=== PATIENT | male | born 1995 | race Caucasian/White ===

== ENCOUNTER 2021-06-15 14:58 | Emergency (ER) | payer OTHER ==
[2021-06-15 16:37] VITALS: BP 137/89; PULSE 104; RESP 20; TEMP 101
[2021-06-15] MEDS ORDERED: ACETAMINOPHEN TAB 500 MG TAB PO STA (17:13)
[2021-06-15] MEDS ORDERED: IBUPROFEN 600 MG TAB PO STA (17:13)
[2021-06-15] MEDS ORDERED: BAMLANIVIMAB (EUA) 700 MG, ETESEVIMAB (EUA) 1,400 MG in SODIUM CHLORIDE 0.9% 50 ML IVPB ONE (17:45)
--- NOTE | 2021-06-15 17:48 | XR ---
EXAMINATION TYPE: XR chest 1V portable DATE OF EXAM: 06/15/2021 COMPARISON: NONE HISTORY: 26 years Male. STUDY INDICATION GIVEN: cough/fever, possible covid . TECHNIQUE: PA chest radiograph IMPRESSION: Scattered patchy opacities are seen in the left lower lung and right upper lung. There are prominent interstitial markings diffusely throughout the lung. Findings concerning for multifocal pneumonia. The heart is not enlarged. No pneumothorax or pleural effusion appreciated. Osseous structures are unremarkable.
--- NOTE | 2021-06-15 18:06 | ED ---
URI HPI - General Chief Complaint: Upper Respiratory Infection Stated Complaint: Cough, runny nose, fever Time Seen by Provider: 06/15/21 16:59 Source: patient, family, RN notes reviewed, Caregiver Mode of arrival: ambulatory Limitations: no limitations - History of Present Illness Initial Comments: Patient is a 26-year-old male with history of autism, ADHD, presenting to the emergency department with his mother with concerns of Covid. Mother recently tested positive as well as additional family members. Patient started having cough, body aches, fevers over the past few days. He has some mild shortness of breath and a mild sore throat as well. He denies history of asthma or COPD comes a nonsmoker. There is been no recent Tylenol and Motrin. Patient has no chest pain, no abdominal pain, no nausea or vomiting. There are no further complaints at this time. Mother does have albuterol nebulizer at home, they have been doing breathing treatments. Upon arrival to the ER, temperature 100.1 degrees, pulse is 104, 100% on room air. - Related Data Previous Rx's Medication Instructions Recorded Dexamethasone [Decadron] 6 mg PO DAILY 5 Days #5 tablet 06/15/21 Allergies Allergy/AdvReac Type Severity Reaction Status Date / Time No Known Allergies Allergy Verified 06/15/21 16:32 Review of Systems ROS Statement: Those systems with pertinent positive or pertinent negative responses have been documented in the HPI. ROS Other: All systems not noted in ROS Statement are negative. Past Medical History Additional Past Medical History / Comment(s): Autism, ADHD History of Any Multi-Drug Resistant Organisms: None Reported Past Surgical History: No Surgical Hx Reported Past Psychological History: No Psychological Hx Reported Smoking Status: Never smoker Past Alcohol Use History: None Reported Past Drug Use History: None Reported General Exam - General Exam Comments Initial Comments: GENERAL: Patient is well-developed and well-nourished. Patient is nontoxic and in no acute distress. HEAD: Atraumatic, normocephalic. EYES: Pupils equal round and reactive to light, extraocular movements intact, sclera anicteric, conjunctiva are normal. Eyelids were unremarkable. ENT: TMs normal, nares patent, oropharynx clear without exudates. Moist mucous membranes. NECK: Normal range of motion, supple without lymphadenopathy or JVD. LUNGS: Unlabored respirations. Breath sounds clear to auscultation bilaterally and equal. No wheezes rales or rhonchi. HEART: Regular rate and rhythm without murmurs, rubs or gallops. ABDOMEN: Soft, nontender, normoactive bowel sounds. No guarding, no rebound. No masses appreciated. MUSCULOSKELETAL: Normal extremities with adequate strength and normal range of motion, no pitting or edema. No clubbing or cyanosis. NEUROLOGICAL: Patient is alert and oriented x 3. Normal speech, normal gait. PSYCH: Normal mood, normal affect. SKIN: Warm, Dry, normal turgor, no rashes or lesions noted. Limitations: no limitations Course Vital Signs 06/15/21 16:32 Temperature 101 F H Pulse Rate 104 H Respiratory 20 Rate Blood Pressure 137/89 O2 Sat by Pulse 100 Oximetry Medical Decision Making - Medical Decision Making Patient is a 26-year-old male with history of autism, ADHD, presenting for Covid-like symptoms for the past couple days. Mother tested covid + 6 days ago. Did arrive slightly febrile, slightly tachycardia. Patient was given Tylenol and Motrin. His rapid test is positive. Mother would like patient to get infusion and patient is okay with this as well. Chest x-ray shows scattered viral pneumonia. Patient is 100% on room air. She received infusion, no adverse side effects. He is also given dose of steroids here in the ER. I will continue him on steroids for his intense cough over the next week. They do have albuterol breathing treatments at home that he can continue with. I also recommended following up with primary care. Return parameters were discussed with the mother and the patient and both verbalized understanding. He is stable for discharge. - Lab Data Lab Results 06/15/21 Range/Units 17:14 Coronavirus (PCR) Detected A (Not Detectd) Disposition Clinical Impression: COVID-19 Disposition: HOME SELF-CARE Condition: Stable Instructions (If sedation given, give patient instructions): Coronavirus Disease 2019 (COVID-19) Additional Instructions: Please return to the Emergency Department if symptoms worsen or any other concerns. Continue to alternate with Tylenol and Motrin every 4 hours for fever, body control. Increase your fluid intake. Take steroids as prescribed. May continue with albuterol as needed for coughing or any shortness of breath. Follow-up with your primary care physician. Prescriptions: Dexamethasone [Decadron] 6 mg PO DAILY 5 Days #5 tablet Is patient prescribed a controlled substance at d/c from ED?: No Referrals: Kerline Caba MD [Primary Care Provider] - 1-2 days Time of Disposition: 19:03
[2021-06-15] MEDS ORDERED: SODIUM CHLORIDE 0.9% 50 ML IVPB ONE (18:30)
[2021-06-15] MEDS ORDERED: methylPREDNISolone SOD SUCCI 125 MG/2 ML VIAL IV STA (18:56)
== END 2021-06-15 19:57 | disposition home or self-care (01) ==
LOC: EC 14:58
DX: U07.1 COVID-19 (principal)
CPT/HCPCS: 99283 ×2; 96365; 96375 ×2; 87635; 71045; M0243; J2930; J3490